=== PATIENT | female | born 1960 | race Hispanic/Latino ===

== ENCOUNTER 2022-08-25 17:11 | Emergency (ER) | payer OTHER ==
[~2022-08-25] VITALS: Ht 167.6 cm; Wt 87.3 kg
[2022-08-25] MEDS ORDERED: ELIQUIS5 MG PO (17:32)
[2022-08-25] MEDS ORDERED: HYDROCODONE/APAP 5MG-325MG TAB ONE (17:55)
[2022-08-25] MEDS ORDERED: HYDROCODONE/APAP 5MG-325MG TAB PO ONE (18:00)
[2022-08-25 18:54] VITALS: O2SAT 100
[2022-08-25] MEDS ORDERED: ULTRAM 50MG50 MG PO (19:07)
== END 2022-08-25 19:16 | disposition home or self-care (01) ==
LOC: FSED 17:22
DX: M79.661 Pain in right lower leg (principal); M71.21 Synovial cyst of popliteal space [Baker], right knee; Z86.718 Personal history of other venous thrombosis and embolism; Z86.711 Personal history of pulmonary embolism; Z79.01 Long term (current) use of anticoagulants
CPT/HCPCS: 93971; 99283